=== PATIENT | male | born 1945 | race Caucasian/White ===

== ENCOUNTER 2023-02-08 15:04 | Inpatient (IN) | payer MEDICARE, OTHER, SELFPAY ==
[2023-02-08 15:56] VITALS: BP 153/67; PULSE 90; RESP 18; TEMP 37.2; O2SAT 93
[2023-02-08 16:56] LABS: Bedside Glucose 118 mg/dL (74-106)
--- NOTE | 2023-02-08 17:39 | EX.PCM.HP.RE ---
HPI - General General Date of Admission: 02/08/23 Date of Service: 02/08/23 Chief Complaint: Here for 3 hours daily rehabilitation. HPI Narrative JUAN R ROLAND, is a 77 Male who presents with following. 02/03/2023 77 year old from [place], [place], presented with acute onset right hemibody weakness. Left 2.5cm small thalamic intracranial hemorrhage, transfer to [facility]. Patient has slurred speech. Bloodwork showed hypokalemia, hyperglycemia, mild leukocytosis. Elevated Troponin. Blood pressure over 200 systolic, started on Cardene drip. He smokes 2 marijuana joints per day. NIHSS 4. No DVT prophylaxis secondary to brain bleed. Control blood sugar. Control systolic blood pressure to < 160, Home Lisinopril, Norvasc held. Treated with Cardene drip, PRN Hydralazine/Labetalol. Beside swallow evaluation. PT/OT/ST. 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 Neurosurgery recommended no neurosurgical intervention. 02/04/2023 CTA head/neck negative for vascular malformation, CT head stable. Weaning cardene drip. Sitter, Seroquel for agitated delirium. 02/05/2023 Weaning Precedex, optimize Seroquel, start subcutaneous heparin for DVT prophylaxis. EEG. 02/06/2023 Agitation resolved, hemodynamically stable, restart Lisinopril. Stop Precedex, titrate Seroquel. Left carotid artery occluded. EEG negative for seizure, epileptiform activity. Out of restraints, slept better. Blood glucose well controlled. 02/08/2023 Admit to [facility] for 3 hours daily rehabilitation, strengthening, prior to discharge home with . COUNT INCLUDES THE [facility] Medical History (Updated 02/08/23 @ 17:[address] Erik Nicholson MD) B12 deficiency BPH (benign prostatic hyperplasia) Debility Diabetes Former smoker High cholesterol Hyperlipidemia Hypertension Hypertension Hypertensive emergency Intracranial hemorrhage Right hemiparesis Stroke/cerebrovascular accident Tetrahydrocannabinol (THC) dependence Tubular adenoma of colon Home Medications atorvastatin 20 mg tablet 20 mg PO QHS cholesterol 02/08/23 [History Last Taken Unknown] fluticasone propionate 50 mcg/actuation nasal spray,suspension 2 spray intranasal DAILY allergies 02/08/23 [History Last Taken Unknown] folic acid 1 mg tablet 1 mg PO DAILY vitamin 02/08/23 [History Last Taken Unknown] glipizide 5 mg tablet, extended release 24 hr (Glucotrol XL) 5 mg PO BID dm 02/08/23 [History Last Taken Unknown] ipratropium 0.5 mg-albuterol 3 mg (2.5 mg base)/3 mL nebulization soln 3 ml inhalation Q4H PRN Shortness Of Breath Or Wheezing 02/08/23 [History Last Taken Unknown] lisinopril 5 mg tablet 15 mg PO DAILY bp 02/08/23 [History Last Taken Unknown] mometasone 220 mcg/actuation(14 doses) breath activated powder inhaler 1 inh inhalation DAILY breathing 02/08/23 [History Last Taken Unknown] omeprazole 20 mg capsule,delayed release 20 mg PO DAILY gerd 02/08/23 [History Last Taken Unknown] polyethylene glycol 3350 17 gram oral powder packet (Miralax) 17 g PO DAILY constipation 02/08/23 [History Last Taken Unknown] quetiapine 25 mg tablet (Seroquel) 25 mg PO BID mood 02/08/23 [History Last Taken Unknown] senna-docusate sodium tablet 2 tab PO BID constipation 02/08/23 [History Last Taken Unknown] thiamine HCl (vitamin B1) 100 mg tablet 100 mg PO DAILY vitamin 02/08/23 [History Last Taken Unknown] Allergy/AdvReac Type Severity Reaction Status Date / Time azithromycin [From AzaSite] Allergy Itching Verified 02/08/23 15:58 adhesive tape [tape] AdvReac PT UNSURE Verified 02/08/23 15:58 OF REACTION dexmedetomidine AdvReac Other Verified 02/08/23 15:58 [From Precedex] Family History (Updated 02/08/23 @ 17:[address] Erik Nicholson MD) Other Hypertension Surgical History (Updated 02/08/23 @ 17:[address] Erik Nicholson MD) History of nasal polypectomy History of right knee surgery History of surgery on lower extremity Social History (Updated 02/08/23 @ 17:[address] Erik Nicholson MD) household members: spouse Smoking Status: Former smoker alcohol intake: never substance use type: marijuana and other details: He smokes 2 marijuana joints per day. additional social history: [place] . ROS Constitutional Constitutional: Denies chills, fever(s) or weight gain ENT HEENT: Denies headache(s), nasal congestion or nasal discharge Cardiovascular Cardiovascular: Denies chest pain or palpitations Respiratory/Chest Respiratory/Chest: Denies cough, excessive phlegm production or shortness of breath with exertion Gastrointestinal Gastrointestinal: Denies abdominal pain, nausea or vomiting Genitourinary Genitourinary: Denies dysuria Musculoskeletal Musculoskeletal: Denies joint pain or joint swelling Integumentary Integumentary: Denies rash or wounds Neurologic Neurologic: Denies focal weakness, numbness or tingling Psychiatric Psychiatric: Denies anxiety, auditory hallucinations, depression, homicidal ideation or suicidal ideation Vital Signs Vital Signs Vital Signs: 02/08/23 15:56 Temperature 98.9 F Temperature Source Oral Pulse Rate 90 Respiratory Rate 18 Blood Pressure 153/67 H Blood Pressure Mean 95 Blood Pressure Source Monitor Blood Pressure Position Semi-Fowlers Blood Pressure Location Right Arm Pulse Ox 93 Oxygen Delivery Method Room Air Indicators for Scoring Admitted with or Primary Diagnosis of CVA/Stroke: Yes Hx of CVA/Stroke: No Modified Dennison Score MRS Score at time of Evaluation: 3-Moderate disability NIHSS NIHSS 1b. LOC Questions: Answers BOTH questions correctly. 1c. LOC Commands: Performs both tasks correctly. 2. Best Gaze: Normal 3. Visual: No visual loss 4. Facial Palsy: Normal symmetrical movements 5a. Left Arm: No drift; arm holds 90 (or 45) degrees for full 10 seconds 5b. Right Arm: No drift; arm holds 90 (or 45) degrees for full 10 seconds 6a. Left Leg: No drift; leg holds 30-degree position for full 5 seconds 6b. Right Leg: Drift; leg falls by the end of 5-seconds, but does not hit bed 7. Limb Ataxia: Absent 8. Sensory: [id number] sensory loss; 9. Best Language: No aphasia; normal 10. Dysarthria: Normal 11. Extinction and Inattention: No abnormality Total: 2 Physical Exam Const alert General Appearance: cooperative HEENT normocephalic Eyes PERRL and EOMs intact bilaterally Neck supple, no JVD and no carotid bruits Resp normal respiratory effort, normal air movement and clear to auscultation bilaterally Cardio regular rate and regular rhythm GI normal to inspection, nondistended, normoactive bowel sounds, non-tender and non-distended Extremity normal capillary refill General Extremity: Negative for edema Skin no rashes or lesions noted General Skin Exam: no breakdown Neuro Neuro Narrative: Right upper extremity mild hemiparesis, right lower extremity moderate hemiparesis. Psych affect normal Appearance: appropriate Results Lab / Micro Data Labs: Laboratory Results - last 24 hr 02/08/23 16:29: POC Glucose 118 H Assessment & Plan Assessment/Plan (1) Debility: (2) Intracranial hemorrhage: (3) Right hemiparesis: (4) Hypertensive emergency: (5) Diabetes mellitus: (6) Hypertension: (7) Hyperlipidemia: (8) BPH (benign prostatic hyperplasia): (9) Tubular adenoma of colon: (10) B12 deficiency: (11) Tetrahydrocannabinol (THC) dependence: PLAN: Plan 77 year old male with below past medical history hospitalized for left thalamic nontraumatic intracranial hemorrhage secondary to hypertensive emergency, right hemiparesis, complicated by agitated delirium, admitted to [facility] for 3 hours daily rehabilitation, strengthening, prior to discharge home with . Debility - PT/OT/ST. Pain - Tylenol 1000mg q6h prn pain (1-10). Bowel - Miralax 17gm daily, senna/colace 2 tablets bid, Dulcolax 10mg pr x 1 prn, MOM 30ml po x 1 prn. DVT prophylaxis - Lovenox 40mg sc daily. Hyperlipidemia - Atorvastatin 20mg qhs. COPD - Budesonide 05mg inhaled q12h, Duoneb 3ml q4h prn. Allergic rhinitis - Flonase 2 sprays nasal daily prn. ?Alcohol dependence - Folic acid 1mg daily, Thiamine 100mg daily. Diabetes Mellitus II - Glipizide 5mg bid. GERD - Pantoprazole 20mg daily. Agitation - Seroquel 25mg bid, wean as appropriate.
[2023-02-08 19:22] VITALS: BP 150/70; PULSE 94; RESP 14; TEMP 37; O2SAT 95
[2023-02-08 20:00] VITALS: O2SAT 95
--- NOTE | 2023-02-08 20:10 | CPS ---
[2000] Pt. refused his Pulmicort aerosol tx. at this time. Pt. also refused to perform I.S. and PEP at this time. Pt. states that he is very tired and has had a busy day. I told the pt. to inform his nurse if he's having any difficulties with his breathing at night.
[2023-02-08] MEDS: QUEtiapine 25 MG Tablet PO (20:37)
[2023-02-08] MEDS: Atorvastatin Calcium 20 MG Tablet PO (20:37)
[2023-02-08] MEDS: Fluticasone 0.05% 1 SPRAY NASAL.SRY 2 SPRAY NASAL (21:45)
[2023-02-08 22:05] LABS: Bedside Glucose 124 mg/dL (74-106)
--- NOTE | 2023-02-08 22:07 | NURSING ---
and patient aware of team and rehab routine. Patient pleasant, x2 assist stand pivot to bsc with staff. Continent. Needs some cues and reminders and gets things mixed up with easy reminders.
[2023-02-09 03:33] LABS: Hemoglobin 13.8 g/dL (13.0-16.5); Mean Corp Hgb Conc 33.7 g/dL (32-36); Mean Corpuscular Hgb 32.9 pg (27.0-32.0); Mean Corpuscular Volume 97.9 fL (80-94); Mean Platelet Vol. 10.8 fl (6.2-12.0); Platelet Count 210 K/mm3 (150-450); RBC Distribution Width CV 12.3 % (11.6-14.6); RBC Distribution Width SD 44.4 fl (35.1-43.9); Red Blood Count 4.19 M/mm3 (4.6-6.2); White Blood Count 7.4 K/mm3 (4.4-11.0)
[2023-02-09 03:51] LABS: ALB/GLOB Ratio 0.9 RATIO (0.9-2.4); AST(SGOT) 38 U/L (15-37); Alanine Aminotransfer ALT/SGPT 49 U/L (16-61); Albumin, Serum 3.1 g/dL (3.2-5.0); Alkaline Phosphatase 56 U/L (45-117); Anion Gap 8 (5-15); BUN 30 mg/dL (7-18); BUN/Creat Ratio 28.8 RATIO (10-20); Calcium,Total 8.8 mg/dL (8.5-10.1); Chloride 106 mmol/L (98-107); Creatinine, Serum 1.04 mg/dL (0.70-1.30); EST Glomerular Filtration Rate 74 mL/min (>60); Est Glom Filt Rate - Afr Amer 89 mL/min (>60); Globulin 3.5 g/dL (2.2-4.2); Glucose 130 mg/dL (74-106); Magnesium 2.1 mg/dL (1.6-2.6); Phosphorus 3.3 mg/dL (2.5-4.9); Potassium 4.1 mmol/L (3.5-5.1); Protein, Total 6.6 g/dL (6.4-8.2); Sodium Level 141 mmol/L (136-145)
[2023-02-09] MEDS: 0.9% Saline Lock 10 ML Syringe IV (06:30)
[2023-02-09] MEDS: Enoxaparin 40 MG/0.4 ML Syringe SC (06:36)
[2023-02-09 06:51] LABS: Bedside Glucose 138 mg/dL (74-106)
[2023-02-09 08:30] VITALS: BP 154/75; PULSE 70; RESP 16; TEMP 36.8; O2SAT 99
[2023-02-09] MEDS: glipiZIDE XL 5 MG Tablet PO ×2 (09:23→17:04)
[2023-02-09] MEDS: QUEtiapine 25 MG Tablet PO ×2 (09:23→20:00)
[2023-02-09] MEDS: Pantoprazole Sodium 20 MG Tablet PO (09:23)
[2023-02-09] MEDS: Thiamine Hydrochloride 100 MG Tablet PO (09:23)
[2023-02-09] MEDS: Folic Acid 1 MG Tablet PO (09:24)
[2023-02-09] MEDS: Lisinopril 5 MG Tablet 15 MG PO (09:24)
[2023-02-09 11:41] LABS: Bedside Glucose 125 mg/dL (74-106)
[2023-02-09 16:36] LABS: Bedside Glucose 84 mg/dL (74-106)
--- NOTE | 2023-02-09 18:51 | PCM.RU.PYE ---
Admission Information Primary Diagnosis:: Left thalamic ICH Status Changes from Prescreening?: No changes Identified Actual Problem List:: Cognitve Impr/Memory Loss, Alteration in Sleep, Mobility Impaired, Ineffective Communication, Know.Dfct/Disease Process and Know.Dfct of Medicaitons Potential Problem List:: DVT, Bleeding, Infection, UTI, Aspiration, Falls, Skin Integrity and Depression Risk of Complications DVT: LMWH and HUMZA Hose Bleeding: Monitor Lab Values, Nursing to Teach Precautions for anti-coagulation therapy., Wound, if applicable, to be assessed every shift. and Stroke patients assessed for lethargy or change in status. Infection: Clinical Staff to Monitor for S/S of infection: and S/S of infection include fever, redness, warmth, etc. Urinary Tract Infection: Monitor for frequency, burning, discomfort, or incontinence. and Nursing will obtain urine sample for urinalysis and C&S when ordered. Aspiration: Clinical staff will monitor for coughing, drooling, congestion., Speech will evaluate swallowing and dsyphasia. and Nursing will monitor patient swallowing during meals. Falls: Patient will be evaluated for Fall Precautions and Patient will be placed on Fall Precautions as indicated per protocol. Skin Breakdown: Nursing will assess skin daily using assessment tool. and Nursing will place on Skin Breakdown Precautions as indicated. Pain: Clinical staff will assess patient's pain level per protocol., Medications will be given, if needed, and the pain level reassessed. and Other methods: Massage, distraction, decrease stimulus, etc. used PRN. Plan of Care Patient requires physician specializing in physical medicine and rehab oversight to provide close medical supervision of rehab issues including: Pain Management, Sleep Problems, Bowel and Bladder, Medical and co-morbidity Management, DVT prophylaxis, Rehabilitation Leadership and Coordination of treatment team Patient needs Physical Therapy: For a minimum of 1 hour and At least 5 out of 7 days Patient needs Physical Therapy to improve:: Mobility, Strengthening, Transfers, Stretching, ROM, Endurance, Stairs, Gait and Balance Patient needs Occupational Therapy: For a minimum of 1 hour and At least 5 out of 7 days Patient needs Occupational Therapy to improve ADL's incl.: Eating, Grooming, Bathing, Dressing, Toileting, Toilet transfers, Higher functioning activities, Household tasks, Adaptive Equipment, Splinting and Other activities as determined Patient requires speech therapy: For a minimum of 1 hour and At least 5 out of 7 days Patient requires speech therapy for: Swallowing, Cognition, Language Skills and Compensatory Strategies Patient requires 24/7 Rehabilitation Nursing for: Pain Issues, Identifying and preventing risk factors, Monitoring and reporting current medical conditions, Assisting with ambulation, transfer, and all ADL's, Teaching patients about disease process and medications, Family teaching, Providing safe environment, Bowel and Bladder Issues, Skin integrity and Medication Management Patient needs Importer Or Exporter/ Case Management for: Discharge Planning, Arranging Home Equipment or Services and Family Interventions Patient needs Dietary and Nutrition Services for: Adequate Nutrition, Nutritional Supplements and Nutritional Education Goals Patient will remain: free from falls and or injury at time of discharge. Patient will perform bed mobility at: MOD I level of assist. Patient will complete transfers from bed to chair at: MOD I level of assist. Patient will ambulate: with MOD I assist (150 feet) Patient will complete upper body dressing at: Standby Assist. Patient will complete lower body dressing at: - (CGA without LOB) Patient will complete toileting at: - (CGA) Patient will perform bathing at: Standby Assist. Patient will complete grooming at: Standby Assist. Patient will complete home management skills at: MOD I level of assist. Patient will achieve: at MOD I assist Patient will have pain level of: of 3 or less Patient's skin will: remain intact and free from infection. Patient will receive: adequate nutrition. Discharge Planning Pt Prognosis for Sig. Practical Improv. w/in Reasonable Time: Good Estimated Length of stay (days): 28 Anticipated D/C Destination: Home with Outpt Therapy Was Preadmission Assessment Accurate?: Yes
[2023-02-09 18:59] VITALS: BP 121/64; PULSE 62; RESP 16; TEMP 36.6; O2SAT 95
[2023-02-09] MEDS: Atorvastatin Calcium 20 MG Tablet PO (20:00)
[2023-02-09] MEDS: Fluticasone 0.05% 1 SPRAY NASAL.SRY 2 SPRAY NASAL (20:00)
[2023-02-09 21:21] LABS: Bedside Glucose 84 mg/dL (74-106)
[2023-02-10] MEDS: Enoxaparin 40 MG/0.4 ML Syringe SC (05:46)
[2023-02-10] MEDS: 0.9% Saline Lock 10 ML Syringe IV (05:57)
[2023-02-10 06:36] LABS: Bedside Glucose 119 mg/dL (74-106)
[2023-02-10 07:00] VITALS: O2SAT 98
[2023-02-10 07:32] VITALS: BP 144/75; PULSE 77; RESP 17; TEMP 36.9; O2SAT 96
[2023-02-10] MEDS: glipiZIDE XL 5 MG Tablet PO (08:20)
[2023-02-10] MEDS: Pantoprazole Sodium 20 MG Tablet PO (08:20)
[2023-02-10] MEDS: Lisinopril 5 MG Tablet 15 MG PO (08:20)
[2023-02-10] MEDS: Thiamine Hydrochloride 100 MG Tablet PO (08:20)
[2023-02-10] MEDS: Folic Acid 1 MG Tablet PO (08:20)
[2023-02-10] MEDS: QUEtiapine 25 MG Tablet PO ×2 (08:20→21:01)
[2023-02-10] MEDS: Senna/Docusate Sodium 1 Tablet 2 TABLET PO (08:21)
--- NOTE | 2023-02-10 12:02 | PCM.PROGNOTE ---
Subjective Subjective Afebrile VSS -systolic blood pressure is mildly elevated in the range of 1 44-1 54. Diastolics are within normal limits. Heart rate is within normal limits. Maintaining appropriate oxygen saturation on RA Oral intake is good. He is eating 75 to 100% of his meals. The blood sugar record was reviewed. Discussed with nursing - no problems that need addressed Reviewed the PT/OT/ST notes Medication list reviewed. Currently on Glucotrol XL 5 mg twice daily. He is taking Seroquel 25 mg twice daily. He is on thiamine and folate acid. All lab drawn yesterday AM was personally reviewed. Hemoglobin is within normal limits but the MCV is increased at 97.9. White blood cell count and platelets are normal. BUN was elevated at 30 with a creatinine of 1.04. Calcium, magnesium and phosphorus are all within normal limits. LFTs were unremarkable. 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 He presented to [place] emergency room on 02/03/[address] with right hemip[address]is. CT showed a left thalamic intracerebral hemorrhage thought to be secondary to uncontrolled hypertension. No neurosurgical intervention was necessary. CTA of the head and neck was negative for vascular malformation or aneurysm. The left internal carotid artery was occluded. He was started on Seroquel on 02/04/2023 due to agitated delirium. He was taken out of restraints on 02/06/2023. He had an EEG that was negative for seizure. Past medical history is significant for BPH, B12 deficiency, diabetes mellitus type 2, tobacco dependence in remission, hyperlipidemia, hypertension, daily THC dependence, COPD and colon polyps. ? hx of ETOH abuse - he is on thiamine and Folic acid? Raymond denies any alcohol use. He used to drink heavily but then when he started using marijuana twice a day he was able to quit drinking. Was not having difficulty sleeping prior to the stroke. No hx of BPD or schizophrenia. Raymond denies lightheadedness, vertigo, CP, SOB at rest, SOB with exertion, cough, nausea, vomiting, abd pain, diarrhea, constipation, dysuria, calf pain and ankle swelling. Tells me that he was taking his medications as instructed at home. Denies any use of decongestants recently. No illicit drug use. Admits to having a lot on his mind since having the stroke. Objective Data Objective Data Vital Signs: Vital Signs Temp Pulse Resp BP Pulse Ox O2 Del Method 98.4 F 77 17 144/75 H 96 Room Air 02/10/23 07:32 02/10/23 07:32 02/10/23 07:32 02/10/23 07:32 02/10/23 07:32 02/10/23 07:32 Oxygen Delivery Method Room Air Weight: 155 lb Intake & Output: Intake and Output for Last 24 Hours 02/08/23 02/09/23 02/10/23 23:59 23:59 23:59 Intake Total 780 / 840 1510 / 1630 360 / 360 Output Total 200 / 400 1425 / 1625 325 / 325 Balance 580 / 440 85 / 5 35 / 35 Lab / Micro Data Result Diagrams: 02/09/23 02:45 02/09/23 02:45 Labs: Laboratory Results - last 24 hr 02/09/23 16:12: POC Glucose 84 02/09/23 20:53: POC Glucose 84 02/10/23 05:53: POC Glucose 119 H Physical Exam Const alert, oriented x3 and no apparent distress General Appearance: cooperative HEENT normocephalic Resp clear to auscultation bilaterally Cardio regular rate, regular rhythm, no rub and no gallops GI normal to inspection, nondistended, normoactive bowel sounds, soft to palpation and non-tender GI Narrative: No guarding with palpation Extremity no calf tenderness General Extremity: Negative for edema Skin General Skin Exam: no breakdown Rashes: no rashes Psych cooperative Appearance: appropriate Assessment & Plan Assessment/Plan (1) Debility: (2) Intracranial hemorrhage: (3) Right hemiparesis: (4) Diabetes mellitus: (5) Hypertension: (6) Hyperlipidemia: (7) BPH (benign prostatic hyperplasia): (8) Tubular adenoma of colon: (9) B12 deficiency: (10) Tetrahydrocannabinol (THC) dependence: PLAN: Plan 1. Continue therapy 2. Check B12 and a hemoglobin A1c. 3. Query the patient about ETOH use. Charges/Coding Visit Charges Inpatient E&M: 34954 Subs Hosp L2
[2023-02-10 12:20] LABS: Bedside Glucose 89 mg/dL (74-106)
[2023-02-10 13:18] LABS: Hemoglobin A1c 6.5 % (3.8-5.6)
[2023-02-10 13:21] LABS: Vitamin B12 365 pg/mL (211-911)
[2023-02-10 17:39] LABS: Bedside Glucose 113 mg/dL (74-106)
[2023-02-10 19:46] VITALS: BP 130/60; PULSE 76; RESP 16; TEMP 36.1; O2SAT 98
[2023-02-10] MEDS: Atorvastatin Calcium 20 MG Tablet PO (21:01)
[2023-02-10] MEDS: Dronabinol 2.5 MG Capsule PO (21:01)
[2023-02-10] MEDS: Fluticasone 0.05% 1 SPRAY NASAL.SRY 2 SPRAY NASAL (21:01)
[2023-02-10 21:55] LABS: Bedside Glucose 147 mg/dL (74-106)
[2023-02-11] MEDS: Enoxaparin 40 MG/0.4 ML Syringe SC (05:23)
[2023-02-11 06:00] VITALS: BMI 24.7
[2023-02-11 06:11] LABS: Bedside Glucose 117 mg/dL (74-106)
[2023-02-11 07:14] VITALS: BP 136/65; PULSE 77; RESP 16; TEMP 36.4; O2SAT 98
[2023-02-11 07:47] VITALS: O2SAT 98
[2023-02-11] MEDS: QUEtiapine 25 MG Tablet 12.5 MG PO (08:41)
[2023-02-11] MEDS: Lisinopril 5 MG Tablet 15 MG PO (08:41)
[2023-02-11] MEDS: Folic Acid 1 MG Tablet PO (08:42)
[2023-02-11] MEDS: glipiZIDE XL 5 MG Tablet PO (08:42)
[2023-02-11] MEDS: Pantoprazole Sodium 20 MG Tablet PO (08:42)
[2023-02-11] MEDS: Thiamine Hydrochloride 100 MG Tablet PO (08:42)
[2023-02-11 11:50] LABS: Bedside Glucose 115 mg/dL (74-106)
--- NOTE | 2023-02-11 13:47 | PCM.PROGNOTE ---
Subjective Subjective Afebrile VSS-blood pressure this a.m. is 136/65. Systolic is more often than not above goal but the diastolic is always within normal limits. Maintaining appropriate oxygen saturation on RA Oral intake is good Discussed with nursing - no problems that need addressed Reviewed the PT/OT/ST notes Medication list reviewed. Hemoglobin A1c was 6.5 and the B12 was within normal limits at 365. Raymond denies lightheadedness, ROMERO, vertigo, CP, SOB at rest, SOB with exertion, cough, nausea, vomiting, abd pain, diarrhea, constipation, dysuria, calf pain and ankle swelling. His only complaints today are urinary urgency and not sleeping well. Was a Flomax a few years ago and said it did not help. He has nocturia and dribbling. Denies burning with urination at this time. Objective Data Objective Data Vital Signs: Vital Signs Temp Pulse Resp BP Pulse Ox O2 Del Method 97.6 F L 77 16 136/65 H 98 Room Air 02/11/23 07:14 02/11/23 07:14 02/11/23 07:14 02/11/23 07:14 02/11/23 07:47 02/11/23 07:47 Oxygen Delivery Method Room Air Weight: 155 lb Intake & Output: Intake and Output for Last 24 Hours 02/09/23 02/10/23 02/11/23 23:59 23:59 23:59 Intake Total 1510 / 1630 1680 / 1680 360 / 360 Output Total 1425 / 1625 775 / 775 625 / 625 Balance 85 / 5 905 / 905 -265 / -265 Lab / Micro Data Result Diagrams: 02/09/23 02:45 02/09/23 02:45 Labs: Laboratory Results - last 24 hr 02/10/23 16:48: POC Glucose 113 H 02/10/23 21:25: POC Glucose 147 H 02/11/23 05:34: POC Glucose 117 H 02/11/23 11:24: POC Glucose 115 H Physical Exam Const alert, oriented x3 and no apparent distress General Appearance: cooperative HEENT normocephalic Resp clear to auscultation bilaterally Cardio regular rate, regular rhythm, no rub and no gallops GI normal to inspection, nondistended, normoactive bowel sounds, soft to palpation and non-tender GI Narrative: No guarding with palpation Extremity no calf tenderness General Extremity: Negative for edema Skin General Skin Exam: no breakdown Rashes: no rashes Psych cooperative Appearance: appropriate Assessment & Plan Assessment/Plan (1) Debility: (2) Intracranial hemorrhage: (3) Right hemiparesis: (4) Diabetes mellitus: (5) Hypertension: (6) Hyperlipidemia: (7) BPH (benign prostatic hyperplasia): (8) Tubular adenoma of colon: (9) B12 deficiency: (10) Tetrahydrocannabinol (THC) dependence: PLAN: Plan 1. Continue therapy 2. Raymond tells me that he used to drink heavily but ever since he started smoking 2 joints a day he has given up alcohol. We will discontinue the thiamine and folic acid. 3. Check a UA to rule out urinary tract infection 4. Blood pressure is not yet at goal so will add Cardura 1 mg p.o. nightly which will also help get the blood pressure down in addition to improving urination. 5. Discontinue Seroquel in the a.m. but continue 25 mg at at bedtime. 6. Ambien 5 mg p.o. nightly for insomnia.....Does not have this problem at home and smoking 2 joints a day. Charges/Coding Visit Charges Inpatient E&M: 77442 Subs Hosp L2
[2023-02-11 14:22] VITALS: BMI 24.7
[2023-02-11 17:15] LABS: Bedside Glucose 101 mg/dL (74-106)
[2023-02-11 18:33] LABS: Mucous, Urine 0 SEEN /hpf (<or=2+)
[2023-02-11 18:54] LABS: Color, Urine Yellow (Yellow); Glucose, Dipstick Normal (Normal); Ketone-Dipstick Negative (Negative); Leukocyte Esterase-Dipstick 500 /ul (Negative); Nitrite-Dipstick Negative (Negative); Occult Blood-Urine 25 /ul (Negative); Protein-Dipstick 15 mg/dl (Negative); Specific Gravity, Urine 1.025 (1.002-1.030); Urine Bilirubin Dipstick Negative (Negative); Urine Clarity Sl. Cloudy (Clear); Urine Urobilinogen Normal (Normal)
[2023-02-11 19:20] LABS: Amorphous Sediment 1+ URATE; Bacteria RARE /hpf (None Seen); Red Blood Cells-Urine 0-5 SEEN /hpf (0-5); Squamous Epithelial Cells - UA 0-5 SEEN /hpf (0-5); White Blood Cells 50-100 SEEN /hpf (0-5)
[2023-02-11 19:34] VITALS: BP 141/73; PULSE 79; RESP 14; TEMP 36.8; O2SAT 97
[2023-02-11] MEDS: Doxazosin 1 MG Tablet PO (20:56)
[2023-02-11] MEDS: Atorvastatin Calcium 20 MG Tablet PO (20:57)
[2023-02-11] MEDS: Zolpidem Tartrate 5 MG Tablet PO (20:59)
[2023-02-11] MEDS: QUEtiapine 25 MG Tablet PO (21:13)
[2023-02-11 21:21] VITALS: PULSE 79; RESP 14; O2SAT 97
[2023-02-11 22:06] LABS: Bedside Glucose 153 mg/dL (74-106)
[2023-02-11] MEDS: Fluticasone 0.05% 1 SPRAY NASAL.SRY 2 SPRAY NASAL (22:19)
--- NOTE | 2023-02-12 01:23 | NURSING ---
Pt requested medication at 2055 this HS.
[2023-02-12 02:11] VITALS: BMI 24.7
--- NOTE | 2023-02-12 02:55 | NURSING ---
At this time Pt used call light to call this nurse into room, found pt sitting in W/C in dark. Pt states he is all wet. Washed pt, re-dressed, and educated on needing assistance before any transfers and safety concerns. Pt stated he transferred to bathroom and to W/C . PA had been moved to bottom of bed. PA replaced under patient and patient assisted back to bed with call light in reach. No c/o pain or discomfort.
[2023-02-12] MEDS: Enoxaparin 40 MG/0.4 ML Syringe SC (05:07)
[2023-02-12 07:00] LABS: Bedside Glucose 134 mg/dL (74-106)
[2023-02-12 07:34] VITALS: BP 162/75; PULSE 82; RESP 16; TEMP 36.4; O2SAT 96
[2023-02-12] MEDS: glipiZIDE XL 5 MG Tablet PO (09:01)
[2023-02-12] MEDS: Lisinopril 5 MG Tablet 15 MG PO (09:02)
[2023-02-12] MEDS: Pantoprazole Sodium 20 MG Tablet PO (09:02)
--- NOTE | 2023-02-12 11:34 | CASEMGMT ---
Social Work Completed advanced directives with pt. Original and copies provided to pt. Copies placed on chart. Johanny Hood [employer]IVETER HELPER
[2023-02-12 11:40] LABS: Bedside Glucose 153 mg/dL (74-106)
[2023-02-12 15:17] VITALS: BMI 24.7
[2023-02-12 17:05] LABS: Bedside Glucose 83 mg/dL (74-106)
[2023-02-12 20:40] VITALS: BP 138/63; PULSE 70; RESP 16; TEMP 36.7; O2SAT 100; BMI 24.7
[2023-02-12] MEDS: QUEtiapine 25 MG Tablet PO (20:58)
[2023-02-12] MEDS: Doxazosin 1 MG Tablet PO (20:58)
[2023-02-12] MEDS: Atorvastatin Calcium 20 MG Tablet PO (20:58)
[2023-02-12] MEDS: Zolpidem Tartrate 5 MG Tablet PO (20:58)
[2023-02-12] MEDS: Fluticasone 0.05% 1 SPRAY NASAL.SRY 2 SPRAY NASAL (20:59)
[2023-02-12 23:15] LABS: Bedside Glucose 146 mg/dL (74-106)
[2023-02-13] MEDS: Enoxaparin 40 MG/0.4 ML Syringe SC (06:18)
[2023-02-13 06:24] VITALS: O2SAT 96
[2023-02-13 07:15] LABS: Bedside Glucose 123 mg/dL (74-106)
[2023-02-13 08:00] VITALS: O2SAT 97
[2023-02-13 08:27] VITALS: BP 116/65; PULSE 89; RESP 18; TEMP 36.7; O2SAT 93
[2023-02-13] MEDS: Pantoprazole Sodium 20 MG Tablet PO (10:24)
[2023-02-13] MEDS: glipiZIDE XL 5 MG Tablet PO (10:24)
[2023-02-13] MEDS: Lisinopril 5 MG Tablet 15 MG PO (10:25)
[2023-02-13 11:30] LABS: Bedside Glucose 116 mg/dL (74-106)
[2023-02-13 13:23] VITALS: BMI 24.7
--- NOTE | 2023-02-13 13:25 | CASEMGMT ---
Social Work IDT met with patient and for Team meeting. Discussed patient's progress in PT/OT/ST/SN. Educated to Medicare approval of 13 days with DC 02/21. IDT recommending home with outpatient PT/OT/ST. Pt lives in [place]. SW to contact [facility] about disciplines, otherwise, requesting a [facility] facility. Therapy Recommending transfer tub bench and bed rail for home, which knows to purchase. OT offered shared care with for to feel more comfortable with taking pt home. agreeable and scheduled for 02/19. SW to continue to follow to finalize DC plans. Plan: DC 02/21 ZULY GarrettW
--- NOTE | 2023-02-13 15:58 | PCM.PROGNOTE ---
Subjective Subjective Raymond was seen on team rounds today. His was present in the room for rounds. Afebrile VSS-blood pressure is doing better with the addition of Cardura 1 mg at at bedtime. The blood pressure this morning was 116/65. Heart rate is within normal limits. He denies lightheadedness. Maintaining appropriate oxygen saturation on RA Oral intake is good Blood sugar record was reviewed and the blood sugars are under excellent control with no hypoglycemia Discussed with nursing - no problems that need addressed Reviewed the PT/OT/ST notes - will come in for shared therapy next week......she feels he may not be ready for DC home....this way she can see how is doing and then they can determine if he will be safe with her helping him at home. Medication list reviewed. Raymond tells me he is sleeping better. He tells me that he was incontinent of urine last night but, this is not documented. He has missed the urinal at times. Denies cephalgia, lightheadedness, coughing, shortness of breath, palpitations, chest pain, nausea/vomiting/abdominal pain, dysuria and calf pain. The UA sent on 02/11/2023 showed 50-100 WBCs and was nitrite negative. There were +1 urate crystals. Specific gravity was 1.025 and there was protein in the urine. Urine culture is growing less than 1000 colonies of Staph aureus so ? whether he actually has a UTI? Postvoid residuals x3 are all less than 200. Objective Data Objective Data Vital Signs: Vital Signs Temp Pulse Resp BP Pulse Ox O2 Del Method 98.0 F 89 18 116/65 93 Room Air 02/13/23 08:27 02/13/23 08:27 02/13/23 08:27 02/13/23 08:27 02/13/23 08:27 02/13/23 08:27 Oxygen Delivery Method Room Air Weight: 144 lb 9.972 oz Body Mass Index (BMI) 24.7 Intake & Output: Intake and Output for Last 24 Hours 02/11/23 02/12/23 02/13/23 23:59 23:59 23:59 Intake Total 1320 / 1320 90 / 90 915 / 915 Output Total 1225 / 1225 900 / 900 275 / 275 Balance 95 / 95 -810 / -810 640 / 640 Lab / Micro Data Result Diagrams: 02/09/23 02:45 02/09/23 02:45 Labs: Laboratory Results - last 24 hr 02/12/23 16:44: POC Glucose 83 02/12/23 20:42: POC Glucose 146 H 02/13/23 06:42: POC Glucose 123 H 02/13/23 11:05: POC Glucose 116 H Micro: Microbiology 02/11/23 18:25 Urine, Clean Catch Urine Culture - Preliminary Staphylococcus aureus Physical Exam Const alert and no apparent distress General Appearance: cooperative HEENT moist oral mucous membranes Resp normal respiratory effort, no use of accessory muscles and clear to auscultation bilaterally Effort and Inspection: Negative for tachypneic or labored Cardio regular rate, regular rhythm and no gallops GI normal to inspection, nondistended, normoactive bowel sounds, non-tender and non-distended GI Narrative: no guarding with palpation Extremity Negative for no calf tenderness General Extremity: Negative for edema Skin General Skin Exam: no breakdown Rashes: no rashes Psych affect normal Assessment & Plan Assessment/Plan (1) Debility: (2) Intracranial hemorrhage: (3) Right hemiparesis: (4) Diabetes mellitus: (5) Hypertension: (6) Hyperlipidemia: (7) BPH (benign prostatic hyperplasia): (8) Tubular adenoma of colon: (9) B12 deficiency: (10) Tetrahydrocannabinol (THC) dependence: PLAN: Plan 1. Continue therapy 2. Raymond's will come in for shared training/therapy next week. Discharge date is 03-14 and it has yet to be determined if he will be going home or to an SNF. 3. Since he has less than 1000 colonies of Staph aureus in his urine will not start antibiotics at this time. Await the sensitivities. We will consider treating for 3 days once we see the sensitivities. He has had urine incontinence and urine urgency with unremarkable postvoid residuals. We will continue the Cardura because it is helping his blood pressure and will treat BPH. Charges/Coding Visit Charges Inpatient E&M: 41418 Subs Hosp L2
[2023-02-13 15:59] VITALS: BP 138/67; BP 154/74; BP 162/74; PULSE 78; PULSE 88; PULSE 91
[2023-02-13 17:09] LABS: Bedside Glucose 91 mg/dL (74-106)
[2023-02-13 22:00] VITALS: BP 127/57; PULSE 83; RESP 18; TEMP 36.8; O2SAT 95; BMI 24.7
[2023-02-13] MEDS: Zolpidem Tartrate 5 MG Tablet PO (22:31)
[2023-02-13] MEDS: Atorvastatin Calcium 20 MG Tablet PO (22:31)
[2023-02-13] MEDS: Doxazosin 1 MG Tablet PO (22:31)
[2023-02-13] MEDS: Fluticasone 0.05% 1 SPRAY NASAL.SRY 2 SPRAY NASAL (22:31)
[2023-02-13] MEDS: QUEtiapine 25 MG Tablet PO (22:31)
[2023-02-13 23:04] LABS: Bedside Glucose 108 mg/dL (74-106)
--- NOTE | 2023-02-14 04:30 | NURSING ---
pt found up in the room during 399 rounding, pt reports that the bed was wet and he was trying to get clothes from the closet. staff assisted pt to the br changed bed linens and cleansed pt and change t-shirt. pt assisted back to bed and was educated on using the call to ring for assistance. pt was trying to explain that he was unable to get attends off and got wrapped in it and sheet, and that he could not find his call light. pt seemed upset over the incontinence, staff tried to explain that this was part of his stroke and that his brain still needed to heal. pt was told by staff if all else fails to call out for help if he could not find his call light. bed alarm was found off and was then turned on
[2023-02-14] MEDS: Enoxaparin 40 MG/0.4 ML Syringe SC (05:49)
[2023-02-14 07:45] LABS: Bedside Glucose 120 mg/dL (74-106)
[2023-02-14 08:07] VITALS: BP 137/68; PULSE 97; RESP 18; TEMP 36.5; O2SAT 95
[2023-02-14] MEDS: glipiZIDE XL 5 MG Tablet PO (09:53)
--- NOTE | 2023-02-14 10:23 | PCM.PN.BLA ---
Progress Note Afebrile VSS Maintaining appropriate oxygen saturation on RA Oral intake is good The blood sugar record was reviewed and blood sugars are very well controlled with no hypoglycemia. Discussed with nursing -continues to have episodes of urinary incontinence. Reviewed the PT/OT/ST notes Medication list reviewed. He continues to complain of urinary urgency but denies dysuria. Postvoid residuals earlier in the admission were all less than 200. The urine culture is growing less than 1000 colonies of methicillin sensitive Staph aureus but, he had significant pyuria on the UA. Alert, no apparent distress, pleasant, oriented x3 Mucous membranes are moist Lungs are clear to auscultation Heart has a regular rate and rhythm with no ectopy, no gallop abdomen-soft, nontender, nondistended, normal bowel sounds No calf tenderness, no edema Impressions/plan 1. Postop debility 2. Cystitis-start Duricef 1 g p.o. daily 3. Hypertension-if the blood pressure is still elevated after the weekend will increase Cardura to 2 mg at at bedtime Visit Charges Inpatient E&M: 71164 [facility] Hosp L1
[2023-02-14] MEDS: Lisinopril 5 MG Tablet 15 MG PO (10:34)
[2023-02-14] MEDS: Pantoprazole Sodium 20 MG Tablet PO (10:34)
[2023-02-14 11:30] LABS: Bedside Glucose 177 mg/dL (74-106)
[2023-02-14] MEDS: Cefadroxil 500 MG CAPSULE 1000 MG PO (12:10)
[2023-02-14 15:28] VITALS: BMI 24.7
[2023-02-14 17:01] LABS: Bedside Glucose 172 mg/dL (74-106)
[2023-02-14 19:35] VITALS: BP 119/53; PULSE 92; RESP 16; TEMP 36.7; O2SAT 100
[2023-02-14] MEDS: Doxazosin 1 MG Tablet PO (21:28)
[2023-02-14] MEDS: Atorvastatin Calcium 20 MG Tablet PO (21:28)
[2023-02-14] MEDS: QUEtiapine 25 MG Tablet PO (21:29)
[2023-02-14] MEDS: Fluticasone 0.05% 1 SPRAY NASAL.SRY 2 SPRAY NASAL (21:29)
[2023-02-14 22:00] VITALS: RESP 18
[2023-02-14 23:00] VITALS: BMI 24.7
[2023-02-15] MEDS: Enoxaparin 40 MG/0.4 ML Syringe SC (05:24)
[2023-02-15 07:08] LABS: Bedside Glucose 130 mg/dL (74-106)
[2023-02-15] MEDS: Lisinopril 5 MG Tablet 15 MG PO (09:25)
[2023-02-15] MEDS: glipiZIDE XL 5 MG Tablet PO (09:25)
[2023-02-15] MEDS: Cefadroxil 500 MG CAPSULE 1000 MG PO (09:25)
[2023-02-15] MEDS: Pantoprazole Sodium 20 MG Tablet PO (09:26)
[2023-02-15 10:00] VITALS: BP 138/69; PULSE 77; RESP 18; TEMP 36.1; O2SAT 93
[2023-02-15 15:50] VITALS: BMI 24.7
[2023-02-15 16:50] LABS: Bedside Glucose 125 mg/dL (74-106)
[2023-02-15 21:30] VITALS: BP 107/51; PULSE 72; RESP 18; TEMP 36.6; O2SAT 95; BMI 24.7
[2023-02-15] MEDS: QUEtiapine 25 MG Tablet PO (21:54)
[2023-02-15] MEDS: Doxazosin 1 MG Tablet PO (21:54)
[2023-02-15] MEDS: Atorvastatin Calcium 20 MG Tablet PO (21:55)
[2023-02-15] MEDS: Fluticasone 0.05% 1 SPRAY NASAL.SRY 2 SPRAY NASAL (21:55)
[2023-02-15 22:20] LABS: Bedside Glucose 133 mg/dL (74-106)
[2023-02-16] MEDS: Enoxaparin 40 MG/0.4 ML Syringe SC (06:00)
[2023-02-16 06:45] LABS: Bedside Glucose 116 mg/dL (74-106)
[2023-02-16 07:14] VITALS: BP 149/59; PULSE 83; RESP 16; TEMP 36.3; O2SAT 94
[2023-02-16] MEDS: Cefadroxil 500 MG CAPSULE 1000 MG PO (07:59)
[2023-02-16] MEDS: Polyethylene Glycol 3350 17 GM PACKET PO (07:59)
[2023-02-16] MEDS: glipiZIDE XL 5 MG Tablet PO (07:59)
[2023-02-16] MEDS: Pantoprazole Sodium 20 MG Tablet PO (08:00)
[2023-02-16] MEDS: Senna/Docusate Sodium 1 Tablet 2 TABLET PO (08:00)
[2023-02-16] MEDS: Lisinopril 5 MG Tablet 15 MG PO (08:01)
[2023-02-16 10:39] VITALS: BMI 24.7
[2023-02-16 17:20] LABS: Bedside Glucose 84 mg/dL (74-106)
[2023-02-16 21:00] VITALS: BP 115/62; PULSE 85; RESP 18; TEMP 36.9; O2SAT 95; BMI 24.7
[2023-02-16] MEDS: Atorvastatin Calcium 20 MG Tablet PO (21:10)
[2023-02-16] MEDS: Fluticasone 0.05% 1 SPRAY NASAL.SRY 2 SPRAY NASAL (21:11)
[2023-02-16] MEDS: QUEtiapine 25 MG Tablet PO (21:11)
[2023-02-16] MEDS: Doxazosin 1 MG Tablet PO (21:11)
--- NOTE | 2023-02-17 03:32 | NURSING ---
Reviewed and agree with Hola DICK, documentation and assessment charting.
[2023-02-17] MEDS: Enoxaparin 40 MG/0.4 ML Syringe SC (05:49)
[2023-02-17 07:27] LABS: Bedside Glucose 109 mg/dL (74-106)
[2023-02-17] MEDS: glipiZIDE XL 5 MG Tablet PO (09:35)
[2023-02-17] MEDS: Pantoprazole Sodium 20 MG Tablet PO (09:35)
[2023-02-17] MEDS: Cefadroxil 500 MG CAPSULE 1000 MG PO (09:35)
[2023-02-17] MEDS: Lisinopril 5 MG Tablet 15 MG PO (09:35)
[2023-02-17 09:40] VITALS: BP 130/53; PULSE 76; RESP 16; TEMP 36.5; O2SAT 96
--- NOTE | 2023-02-17 10:12 | PCM.PROGNOTE ---
Subjective Subjective Day #4 cefadroxil Afebrile VSS-blood pressure is for the most part adequately controlled. Diastolics are always within goal but systolic is often elevated in the AM.....between 130-140. Lam has helped. Orthostatics were negative last . Maintaining appropriate oxygen saturation on RA Oral intake is good. Incontinence has resolved with antibiotics. Blood sugar record was reviewed and the blood sugars are under excellent control with no hypoglycemia. Discussed with nursing - no problems that need addressed Reviewed the PT/OT/ST notes Medication list reviewed. Raymond denies lightheadedness, vertigo, CP, SOB at rest, SOB with exertion, cough, nausea, vomiting, abd pain, diarrhea, constipation, dysuria, calf pain and ankle swelling. Frustrated that he is not able to write......he is right handed and fine motor coordination of the R hand is impaired by the stroke. Tells me that he is no longer taking the Ambien because he feels it was contributing to urinary continence at night. anxious to go home on Friday........will be dependent on whether or not his will be able to adequately assist him......she is coming in for shared care this week and will spend the day with the therapists. Objective Data Objective Data Vital Signs: Vital Signs Temp Pulse Resp BP Pulse Ox O2 Del Method FiO2 97.7 F L 76 16 130/53 H 96 Room Air 97 02/17/23 09:40 02/17/23 09:40 02/17/23 09:40 02/17/23 09:40 02/17/23 09:40 02/17/23 09:40 02/14/23 22:00 Oxygen Delivery Method Room Air Weight: 144 lb 9.972 oz Body Mass Index (BMI) 24.7 Intake & Output: Intake and Output for Last 24 Hours 02/15/23 02/16/23 02/17/23 23:59 23:59 23:59 Intake Total 1300 / 1300 420 / 420 360 / 360 Output Total 1300 / 1300 700 / 700 Balance 0 / 0 -280 / -280 360 / 360 Lab / Micro Data Result Diagrams: 02/09/23 02:45 02/09/23 02:45 Labs: Laboratory Results - last 24 hr 02/16/23 16:51: POC Glucose 84 02/17/23 06:43: POC Glucose 109 H Micro: Microbiology 02/11/23 18:25 Urine, Clean Catch Urine Culture - Final Staphylococcus aureus Physical Exam Const alert and no apparent distress General Appearance: cooperative HEENT moist oral mucous membranes Resp normal respiratory effort, no use of accessory muscles and clear to auscultation bilaterally Effort and Inspection: Negative for tachypneic or labored Cardio regular rate, regular rhythm and no gallops GI normal to inspection, nondistended, normoactive bowel sounds, non-tender and non-distended GI Narrative: no guarding with palpation Extremity Negative for no calf tenderness General Extremity: Negative for edema Skin General Skin Exam: no breakdown Rashes: no rashes Psych affect normal Appearance: appropriate Assessment & Plan Assessment/Plan (1) Debility: (2) Intracranial hemorrhage: (3) Right hemiparesis: (4) Diabetes mellitus: (5) Hypertension: (6) Hyperlipidemia: (7) BPH (benign prostatic hyperplasia): (8) Tubular adenoma of colon: (9) B12 deficiency: (10) Tetrahydrocannabinol (THC) dependence: PLAN: Plan 1. Continue therapy 2. His is coming in this week for family training/shared care and a decision will need to be made if she will be able to assist him at home adequately or if he needs to go to a SNF prior to returning home. 3. Check a BMP and CBC in the a.m. 4. Plan 7 days of cefadroxil for methicillin sensitive Staph aureus cystitis. 5. Discontinue Ambien Charges/Coding Visit Charges Inpatient E&M: 49819 Subs Hosp L2
[2023-02-17 16:32] VITALS: BMI 24.7
[2023-02-17 17:15] LABS: Bedside Glucose 112 mg/dL (74-106)
[2023-02-17 19:27] VITALS: BP 122/65; PULSE 82; RESP 16; TEMP 36.4; O2SAT 94
[2023-02-17 20:10] VITALS: BMI 24.7
[2023-02-17] MEDS: QUEtiapine 25 MG Tablet PO (20:22)
[2023-02-17] MEDS: Fluticasone 0.05% 1 SPRAY NASAL.SRY 2 SPRAY NASAL (20:22)
[2023-02-17] MEDS: Atorvastatin Calcium 20 MG Tablet PO (20:22)
[2023-02-17] MEDS: Doxazosin 1 MG Tablet PO (20:22)
[2023-02-18 05:47] LABS: Hemoglobin 13.5 g/dL (13.0-16.5); Mean Corp Hgb Conc 33.8 g/dL (32-36); Mean Corpuscular Hgb 33.3 pg (27.0-32.0); Mean Corpuscular Volume 98.8 fL (80-94); Mean Platelet Vol. 10.4 fl (6.2-12.0); Platelet Count 230 K/mm3 (150-450); RBC Distribution Width CV 12.4 % (11.6-14.6); RBC Distribution Width SD 45.3 fl (35.1-43.9); Red Blood Count 4.05 M/mm3 (4.6-6.2); White Blood Count 6.7 K/mm3 (4.4-11.0)
[2023-02-18] MEDS: Enoxaparin 40 MG/0.4 ML Syringe SC (06:17)
[2023-02-18 06:34] LABS: Anion Gap 5 (5-15); BUN 34 mg/dL (7-18); BUN/Creat Ratio 31.5 RATIO (10-20); Calcium,Total 9.2 mg/dL (8.5-10.1); Chloride 102 mmol/L (98-107); Creatinine, Serum 1.08 mg/dL (0.70-1.30); EST Glomerular Filtration Rate 70 mL/min (>60); Est Glom Filt Rate - Afr Amer 85 mL/min (>60); Estimated Creatinine Clearance 47.96 ml/min; Glucose 109 mg/dL (74-106); Potassium 4.4 mmol/L (3.5-5.1); Sodium Level 135 mmol/L (136-145)
[2023-02-18 06:55] LABS: Bedside Glucose 119 mg/dL (74-106)
[2023-02-18 07:32] VITALS: BP 115/61; PULSE 69; RESP 15; TEMP 36.4; O2SAT 96
[2023-02-18] MEDS: Lisinopril 5 MG Tablet 15 MG PO (09:48)
[2023-02-18] MEDS: Pantoprazole Sodium 20 MG Tablet PO (09:49)
[2023-02-18] MEDS: glipiZIDE XL 5 MG Tablet PO (09:49)
[2023-02-18] MEDS: Cefadroxil 500 MG CAPSULE 1000 MG PO (09:49)
[2023-02-18 15:54] VITALS: BMI 24.7
[2023-02-18 17:00] LABS: Bedside Glucose 124 mg/dL (74-106)
[2023-02-18 19:49] VITALS: BP 148/64; PULSE 87; RESP 18; TEMP 37; O2SAT 96
[2023-02-18] MEDS: Fluticasone 0.05% 1 SPRAY NASAL.SRY 2 SPRAY NASAL (21:05)
[2023-02-18] MEDS: QUEtiapine 25 MG Tablet PO (21:06)
[2023-02-18] MEDS: Doxazosin 1 MG Tablet PO (21:06)
[2023-02-18] MEDS: Atorvastatin Calcium 20 MG Tablet PO (21:06)
[2023-02-19 00:49] VITALS: BMI 24.7
[2023-02-19] MEDS: Enoxaparin 40 MG/0.4 ML Syringe SC (05:13)
[2023-02-19 06:00] VITALS: BMI 25.0
[2023-02-19 07:28] LABS: Bedside Glucose 124 mg/dL (74-106)
[2023-02-19] MEDS: Cefadroxil 500 MG CAPSULE 1000 MG PO (08:55)
[2023-02-19] MEDS: Lisinopril 5 MG Tablet 15 MG PO (08:56)
[2023-02-19] MEDS: Pantoprazole Sodium 20 MG Tablet PO (08:56)
[2023-02-19] MEDS: glipiZIDE XL 5 MG Tablet PO (08:56)
[2023-02-19 10:00] VITALS: BP 127/45; PULSE 65; RESP 18; TEMP 36.3; O2SAT 97
--- NOTE | 2023-02-19 12:26 | PN_ITS ---
Subjective Subjective Day #5 cefadroxil Afebrile VSS-blood pressure is well controlled and the heart rate is within normal limits. Maintaining appropriate oxygen saturation on RA Oral intake is good The blood sugar record was reviewed and the blood sugars are under excellent control with no hypoglycemia. Discussed with nursing - no problems that need addressed Reviewed the PT/OT/ST notes Medication list reviewed. Denies dysuria and no longer has urinary incontinence. He thinks maybe it was due to trazodone and that he could not get awake enough to use the urinal. Raymond denies chest pain, shortness of breath, palpitations, n ausea/vomiting/abdominal pain, calf tenderness and lightheadedness. He is not c/o insomnia even though he has not been taking the Trazodone. Objective Data Objective Data Vital Signs: Vital Signs Temp Pulse Resp BP Pulse Ox O2 Del Method FiO2 97.4 F L 65 18 127/45 H 97 Room Air 97 02/19/23 10:00 02/19/23 10:00 02/19/23 10:00 02/19/23 10:00 02/19/23 10:00 02/19/23 10:00 02/14/23 22:00 Oxygen Delivery Method Room Air Weight: 144 lb 9.972 oz Body Mass Index (BMI) 24.7 Intake & Output: Intake and Output for Last 24 Hours 02/17/23 02/18/23 02/19/23 23:59 23:59 23:59 Intake Total 1060 / 1060 250 / 250 Output Total 1000 / 1000 550 / 550 Balance 60 / 60 250 / 250 -550 / -550 Lab / Micro Data Result Diagrams: 02/18/23 05:25 02/18/23 05:25 Labs: Laboratory Results - last 24 hr 02/18/23 16:37: POC Glucose 124 H 02/19/23 06:27: POC Glucose 124 H Micro: Microbiology 02/11/23 18:25 Urine, Clean Catch Urine Culture - Final Staphylococcus aureus Physical Exam Const alert, oriented x3 and no apparent distress General Appearance: cooperative HEENT normocephalic and moist oral mucous membranes Resp normal respiratory effort, no use of accessory muscles and clear to auscultation bilaterally Effort and Inspection: Negative for tachypneic or labored Cardio regular rate, regular rhythm, no rub and no gallops GI normal to inspection, nondistended, normoactive bowel sounds, soft to palpation and non-tender GI Narrative: no guarding with palpation Extremity Negative for no calf tenderness General Extremity: Negative for edema Skin General Skin Exam: no breakdown Rashes: no rashes Psych cooperative and affect normal Appearance: appropriate Assessment & Plan Assessment/Plan (1) Debility: (2) Intracranial hemorrhage: (3) Right hemiparesis: (4) Diabetes mellitus: (5) Hypertension: (6) Hyperlipidemia: (7) BPH (benign prostatic hyperplasia): (8) Tubular adenoma of colon: (9) B12 deficiency: (10) Tetrahydrocannabinol (THC) dependence: PLAN: Plan 1. Continue therapy 2. Family training tomorrow with his 3. Discontinue cefadroxil. He has had 5 days of treatment and is completely asymptomatic and afebrile. 4. Discontinue Seroquel at at bedtime 5. Discontinue Accu-Cheks 6. Plan discharge home Friday, 03-14, with outpatient therapy Charges/Coding Visit Charges Inpatient E&M: 62429 Subs Hosp L2
[2023-02-19 15:30] VITALS: BMI 25.0
--- NOTE | 2023-02-19 15:56 | CASEMGMT ---
Social Work SW followed up with therapy after training with DME recommendations. Pt needs a FWW. SW send order to [facility] via [facility]. confirmed pt to DC home with [facility]/OT/ST. SW left voicemail with [facility] to follow up on appts. Plan: DC home with 02/21, [facility]/OT/ST, FWW Johanny Hood, DIRECTOR OF NATIONAL SALES VACCINE SPECIALIST
[2023-02-19 19:47] VITALS: BP 111/51; PULSE 75; RESP 16; TEMP 36.1; O2SAT 94
[2023-02-19 21:43] VITALS: BP 113/86; PULSE 79
[2023-02-19] MEDS: Atorvastatin Calcium 20 MG Tablet PO (21:44)
[2023-02-19] MEDS: Doxazosin 1 MG Tablet PO (21:44)
[2023-02-19] MEDS: Fluticasone 0.05% 1 SPRAY NASAL.SRY 2 SPRAY NASAL (21:44)
[2023-02-19 22:03] VITALS: BMI 25.0
[2023-02-20] MEDS: Enoxaparin 40 MG/0.4 ML Syringe SC (06:12)
--- NOTE | 2023-02-20 06:13 | NURSING ---
pt washed up face this morning. At this time, patient stated he did not want to change his shirt and did not want his alisa hose on at this time. Pt states he will ring call mckenzie when he is ready.
[2023-02-20 06:50] LABS: Anion Gap 5 (5-15); BUN 32 mg/dL (7-18); BUN/Creat Ratio 29.4 RATIO (10-20); Calcium,Total 9.2 mg/dL (8.5-10.1); Chloride 104 mmol/L (98-107); Creatinine, Serum 1.09 mg/dL (0.70-1.30); EST Glomerular Filtration Rate 70 mL/min (>60); Est Glom Filt Rate - Afr Amer 84 mL/min (>60); Estimated Creatinine Clearance 47.52 ml/min; Glucose 117 mg/dL (74-106); Potassium 4.7 mmol/L (3.5-5.1); Sodium Level 136 mmol/L (136-145)
[2023-02-20 07:39] VITALS: BP 102/57; PULSE 62; RESP 16; TEMP 36.2; O2SAT 95
[2023-02-20] MEDS: glipiZIDE XL 5 MG Tablet PO (07:56)
[2023-02-20] MEDS: Lisinopril 5 MG Tablet 15 MG PO (07:56)
[2023-02-20] MEDS: Pantoprazole Sodium 20 MG Tablet PO (07:56)
--- NOTE | 2023-02-20 09:46 | PCM.PROGNOTE ---
Subjective Subjective Raymond was seen on team rounds today. His was present in the room for rounds. Afebrile VSS Maintaining appropriate oxygen saturation on RA Oral intake is good No urinary incontinence. Discussed with nursing - no problems that need addressed Reviewed the PT/OT/ST notes Medication list reviewed. All lab drawn this morning was personally reviewed. Sodium is normal at 136 and the potassium is 4.7. BUN is 32 with a creatinine of 1.09 and a BUN/creatinine ratio of 29.4. Denies lightheadedness. Continues to not drink enough fluid despite much encouragement. Check orthostatics today. Alessia came in for family training yesterday and it went very well. She feels much better about him coming home tomorrow. Objective Data Objective Data Vital Signs: Vital Signs Temp Pulse Resp BP Pulse Ox O2 Del Method FiO2 97.2 F L 62 16 102/57 L 95 Room Air 97 02/20/23 07:39 02/20/23 07:39 02/20/23 07:39 02/20/23 07:39 02/20/23 07:39 02/20/23 07:39 02/14/23 22:00 Oxygen Delivery Method Room Air Weight: 144 lb 9.972 oz Body Mass Index (BMI) 25.0 Intake & Output: Intake and Output for Last 24 Hours 02/18/23 02/19/23 02/20/23 23:59 23:59 23:59 Intake Total 250 / 250 Output Total 550 / 550 Balance 250 / 250 -550 / -550 Lab / Micro Data 02/18/23 05:25 02/20/23 05:56 Labs: Laboratory Results - last 24 hr 02/20/23 05:56: Sodium 136, Potassium 4.7, Chloride 104, Carbon Dioxide 27.0, Anion Gap 5, BUN 32 H, Creatinine 1.09, Estim Creat Clear Calc 47.52, Est GFR (MDRD) Af Amer 84, Est GFR (MDRD) Non-Af 70, BUN/Creatinine Ratio 29.4 H, Glucose 117 H, Calcium 9.2 Micro: Microbiology 02/11/23 18:25 Urine, Clean Catch Urine Culture - Final Staphylococcus aureus Physical Exam Const alert, oriented x3 and no apparent distress General Appearance: cooperative HEENT normocephalic and moist oral mucous membranes Resp normal respiratory effort, no use of accessory muscles and clear to auscultation bilaterally Effort and Inspection: Negative for tachypneic or labored Cardio regular rate, regular rhythm, no rub and no gallops GI normal to inspection, nondistended, normoactive bowel sounds, soft to palpation and non-tender GI Narrative: no guarding with palpation Extremity Negative for no calf tenderness General Extremity: Negative for edema Skin General Skin Exam: no breakdown Rashes: no rashes Psych cooperative and affect normal Appearance: appropriate Assessment & Plan Assessment/Plan (1) Debility: (2) Intracranial hemorrhage: (3) Right hemiparesis: (4) Diabetes mellitus: (5) Hypertension: (6) Hyperlipidemia: (7) BPH (benign prostatic hyperplasia): (8) Tubular adenoma of colon: (9) B12 deficiency: (10) Tetrahydrocannabinol (THC) dependence: PLAN: Plan 1. Continue therapy today and DC home tomorrow 2. Will have OP therapy at [facility] 3. Follow up with PCP in 7-10 days. Charges/Coding Visit Charges Inpatient E&M: 27994 Subs Hosp L2
[2023-02-20 10:42] VITALS: BP 137/64; BP 144/66; BP 154/76; PULSE 86; PULSE 88; PULSE 95
--- NOTE | 2023-02-20 12:52 | CASEMGMT ---
Social Work IDT met with patient and for Team meeting. Discussed patient's progress in PT/OT/ST/SN. Confirmed DC home 02/21, per Medicare. SW coordinated FWW and outpatient PT/OT/ST at [facility]. No other needs noted. Johanny Hood, HEEL SPRAYER [employer] COLLECTION SYSTEM OPERATOR
[2023-02-20 13:19] VITALS: BMI 25.0
[2023-02-20 20:00] VITALS: BP 118/62; PULSE 77; RESP 16; TEMP 36.9; O2SAT 97; BMI 25.0
[2023-02-20] MEDS: Atorvastatin Calcium 20 MG Tablet PO (20:24)
[2023-02-20] MEDS: Doxazosin 1 MG Tablet PO (20:24)
[2023-02-20] MEDS: Fluticasone 0.05% 1 SPRAY NASAL.SRY 2 SPRAY NASAL (20:24)
[2023-02-21] MEDS: Enoxaparin 40 MG/0.4 ML Syringe SC (06:16)
[2023-02-21 08:08] VITALS: BP 133/52; PULSE 71; RESP 18; TEMP 36.3; O2SAT 94
[2023-02-21] MEDS: Pantoprazole Sodium 20 MG Tablet PO (08:45)
[2023-02-21] MEDS: Lisinopril 5 MG Tablet 15 MG PO (08:45)
[2023-02-21] MEDS: glipiZIDE XL 5 MG Tablet PO (08:45)
--- NOTE | 2023-02-21 09:37 | DCINST_ITS ---
Discharge Instructions Diet Discharge Diet: - (Low-fat, low-salt, carbohydrate consistent) Activity Discharge Activity: May Not Drive, May Shower and Use Walker May resume sexual activity in: No Restrictions Weight Bearing Status: Full weight bearing Lifting Restrictions: No more than 5-10 lbs Dressing / Incision Call your doctor if you observe: Fever of 101 or Higher, Inability to urinate, Shortness of breath, Dizziness, Fainting spells, Swelling in the ankles, Chest pain, Increased palpitations (irregular heartbeat), Calf discomfort and Uncontrolled pain Follow Up Care Please Follow Up With: Phill Delgado MD Test Results: Test results from this visit will be discussed in further detail at your follow- up appointment, if applicable. Pending Tests Upon Discharge: none Discharge Plan Admission Admit Date/Time: 02/08/23 15:04 Primary Reason for Your Visit: Post stroke debility Attending Provider: Rachel Zelaya Consulting Providers: Erik Nicholson Chi Instructions Patient Instructions: Lipid Panel, Intimacy After Stroke, Hypertension Stroke Link, Discharge Instructions for Stroke, What Is Hemorrhagic Stroke, Risk Factors for Stroke Additional Instructions / Restrictions: 1. 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 The imaging you had of the brain and the blood vessels supplying the brain showed no aneurysms, no arteriovenous malformations and no masses. Your stroke is presumed to be due to uncontrolled high blood pressure but, we can not say this for sure. It is very important to keep your BP controlled and this means it should be less than 130/80. I suggest you get a BP cuff to keep at home and take your BP a few times a week at different times to make sure it is staying < 130/80. If it is consistently > 130/[address] Delgado for advice on adjusting medications. 2. You need to drink more non-caffeinated liquids to stay hydrated. The symptoms of dehydration are lightheadedness with standing, racing heart, weakness and fatigue. 3. One of the medications that helps control your blood pressure is called doxazosin, also known as Cardura. You take this medication at bedtime. Not only does it control blood pressure but it helps with the prostate. This drug will make you lightheaded if you get dehydrated. 4. Caffeine can elevate the BP and so can decongestants like Sudafed. If you take an over the counter medication for nasal congestion always ask the pharmacist if the medication could elevate your BP. 5. Your Blood sugars are under excellent control and the goal should be to keep the HGBA1C under 7. Your HGBA1C while in rehab was 6.5 and that is excellent. 6. You are on a medication to control your cholesterol and it is called Atorvastatin, also called Lipitor. Take this medication at bedtime. Your LDL (bad cholesterol) should be less than or equal to 70 since you are diabetic and you have had a stroke. I would like to see your HDL (good cholesterol) > 40. Exercise helps to increase your HDL and this helps to prevent strokes. Daily exercise helps to prevent strokes and to preserve brain/cognitive function. 7. It has been a pleasure getting to know you Raymond. Take care of yourself and be well. If you have any questions after you leave rehab please do not hesitate to call me. OFFICE: [phone] CELL: [phone] Discharge Orders/Prescriptions Prescriptions: New acetaminophen 500 mg Tablet 1,000 mg PO Q6H PRN PRN (Reason: Pain Score 1-10) Qty: 1 0RF glipizide 5 mg tablet extended release 24hr 5 mg PO DAILY Qty: 30 0RF doxazosin 1 mg tablet 1 mg PO QHS Qty: 30 0RF Continued atorvastatin 20 mg Tablet 20 mg PO QHS Qty: 30 0RF omeprazole 20 mg Capsule,Delayed Release(Dr/Ec) 20 mg PO DAILY Qty: 30 0RF lisinopril 5 mg Tablet 15 mg PO DAILY Qty: 90 0RF Rx Instructions: 2 tabs in the AM and 1 tab at bedtime Discontinued quetiapine [Seroquel] 25 mg Tablet 25 mg PO BID ipratropium-albuterol [DuoNeb] 0.5 mg-3 mg(2.5 mg base)/3 mL Solution For Nebulization 3 ml INHALATION Q4H PRN (Reason: Shortness Of Breath Or Wheezing) polyethylene glycol 3350 [Miralax] 17 gram Powder In Packet 17 g PO DAILY thiamine HCl (vitamin B1) 100 mg Tablet 100 mg PO DAILY folic acid 1 mg Tablet 1 mg PO DAILY fluticasone propionate [Flonase] 50 mcg/actuation [place],Suspension 2 spray INTRANASAL DAILY Rx Instructions: administer into each nostril senna-docusate sodium Tablet 2 tab PO BID mometasone 220 mcg/ actuation (14) Aerosol Powdr Breath Activated 1 inh INHALATION DAILY glipizide [Glucotrol XL] 5 mg Tablet Extended Release 24hr 5 mg PO BID Referrals / Follow Up: Dahlia Villalba MD [Other] - 03/18/23 10:00 am (Neuro ) Phill Delgado MD [Non-Staff] - 02/28/23 1:00 pm Disposition Disposition (needs filled in before D/C Order can be placed): Home, Self Care
[2023-02-21 10:24] VITALS: BP 137/64; PULSE 91; RESP 18; TEMP 36.6; O2SAT 96
--- NOTE | 2023-02-21 10:26 | DS.PCM_ITS ---
Providers Date of Admission: 02/08/23 Date of Discharge: 02/21/23 none Reason For Visit: CVA Diagnosis Discharge Diagnosis (1) Debility: Status: Acute Code(s): R53.81 - Other malaise (2) Intracranial hemorrhage: Status: Acute Code(s): I62.9 - Nontraumatic intracranial hemorrhage, unspecified (3) Right hemiparesis: Status: Acute Code(s): G81.91 - Hemiplegia, unspecified affecting right dominant side (4) Diabetes mellitus: Status: Acute Code(s): E11.9 - Type 2 diabetes mellitus without complications Plan: Well controlled as an OP. (5) Hypertension: Status: Chronic Code(s): I10 - Essential (primary) hypertension Plan: Goal is consistently less than 130/80 given the hemorrhagic stroke. I believe he was compliant with his medications at home....the markedly elevate BP in the ED could be due to cerebral autoregulation to increase blood blood flow to an ischemic area. (6) Hyperlipidemia: Status: Acute Code(s): E78.5 - Hyperlipidemia, unspecified (7) BPH (benign prostatic hyperplasia): Status: Acute Code(s): N40.0 - Benign prostatic hyperplasia without lower urinary tract symptoms Plan: Has sx of BPH........On Flomax in the past but, it did not seem to help with nocturia and urgency. He is doing well at NH on Cardura at [facility] from rehab. (8) Tubular adenoma of colon: Status: Acute Code(s): D12.6 - Benign neoplasm of colon, unspecified (9) B12 deficiency: Status: Acute Code(s): E53.8 - Deficiency of other specified B group vitamins (10) Tetrahydrocannabinol (THC) dependence: Status: Acute Code(s): F12.20 - Cannabis dependence, uncomplicated Plan: 2 joints a day. Plan 1. DC home with his . She had family training this week and feels that they will be able to manage at home. 2. OP therapy in [place]. Medications at Discharge Home Medications acetaminophen 500 mg tablet 1,000 mg PO Q6H PRN PRN Pain Score 1-10 #1 TAB 02/21/23 atorvastatin 20 mg tablet 20 mg PO QHS cholesterol #30 tabs 02/21/23 doxazosin 1 mg tablet 1 mg PO QHS #30 tabs 02/21/23 glipizide 5 mg tablet, extended release 24 hr 5 mg PO DAILY #30 tabs 02/21/23 lisinopril 5 mg tablet 15 mg PO DAILY bp #90 tabs 02/21/23 omeprazole 20 mg capsule,delayed release 20 mg PO DAILY gerd #30 caps 02/21/23 Hospital Course Operations None Procedures None Summary of Care Provided Minutes Spent on Discharge: 40 Hospital Course: Dileep Cr is a 77-year-old male with a past medical history of BPH, B12 deficiency, diabetes mellitus type 2, tobacco dependence in remission, alcohol dependence in remission, hyperlipidemia, hypertension, regular THC use, COPD and colon polyps. He presented to the emergency department at [facility] on 02/03/2023 with right hemiparesis. A stat noncontrast CT brain showed a left thalamic intracerebral hemorrhage thought to be secondary to uncontrolled hypertension however the patient and his told me that he takes his med ications religiously. I suspect the blood pressure was elevated in the emergency department secondary to the stroke. He was started on a Cardene drip at the emergency room in [place] and then transferred to [facility] to be evaluated by neurosurgery. Neurosurgery recommended no judith rosurgical intervention. CTA of the head and neck was done and showed no AVM's, hemorrhagic masses and no aneurysms. He was admitted to the ICU and had delirium in the ICU. He was on Precedex at the time the delirium developed. He was started on Seroquel and also started on folic acid and thiamine. Raymond assures me that he stopped drinking except for special occasions many years ago. EEG was ne gative for seizures. While at [facility] he was seen by PT/OT/ST and a recommendation for acute inpt rehab was made. He was transferred to the acute inpt rehab unit at [facility] on 02/08/23 for 3 hours of therapy daily to restore function/independence at or near his level prior to the stroke. HGBA1C at admission to [facility] was 6.5. B12 was normal. Raymond c/o nocturia, urgency, dribbling and a UZ was done that showed 50-100 WBCs per high-power field with rare bacteria. It was nitrite negative. He was afebrile. White blood cell count was normal. Urine culture was done and grew less than 1000 colonies of a methicillin sensitive Staph aureus. He received a 5 days course of appropriate antibiotics. PVR's were all less than 200. He was started on Cardura for BPH and also for its effective on lowering BP. Prior to DC he had no urgency and dribbling and denied dysuria. Raymond did quite well in therapy. To discharge he was independent with eating and supervision/set up for grooming. He was also supervision/set up for bathing, upper body dressing, lower body dressing and toileting. He was standby assist with toilet transfer and tub/shower transfer. He could complete 12 steps with 2 handrails at contact-guard assist but he was hitting the right foot on the step consistently. He will not be going up and down stairs to the basement when he initially goes home and only has to go up 2 steps with 1 handrail which he was able to do with a wheeled walker and then a platform with a wheeled walker at contact-guard assist. This will allow him entry into his home. He had ambulated up to 660 feet with a wheeled walker at standby assist/contact- guard assist on various surfaces. He was tried with a straight cane but did better with a wheeled walker so he went home with a wheeled walker. His came in a few days from [place] for family/shared training and she felt competent she would be able to provide the assistance Ryamond needs at home. Raymond was discharged on 02/21/23. He will have outpatient therapy at [facility]. He has appointments to follow-up with Dr. Nadege Villalba from neurosurgery and Dr. Phill Delgado, his PCP. Physical Exam Const alert, oriented x3, no apparent distress and well nourished Constitutional Narrative: Looks younger than his stated age. General Appearance: cooperative and comfortable HEENT head/scalp atraumatic HEENT Narrative: Mucous membranes are dry. I once again told him to drink enough water daily to keep his urine a pale yellow. Eyes PERRL, EOMs intact bilaterally, conjunctivae normal and no scleral icterus Eyes Narrative: Normal visual wills Neck no lymphadenopathy, supple, nodes and no carotid bruits General: trachea midline Chest Chest: symmetrical chest wall rise Resp normal respiratory effort, normal air movement, no use of accessory muscles and clear to auscultation bilaterally Resp Narrative: Take neck and breathing is not labored. Effort and Inspection: able to speak in complete sentences Cardio regular rate, regular rhythm, S1 normal heart sound, S2 normal heart sound, no murmurs, no rub and no gallops GI normal to inspection, nondistended, normoactive bowel sounds, soft to palpation, non-tender, no masses and no bruits GI Narrative: No guarding with palpation Extremity normal capillary refill, no calf tenderness and no pedal edema Skin General Skin Exam: no breakdown Rashes: no rashes Neuro oriented x3, CN's II-XII intact bilaterally and moves all extremities Neuro Narrative: Continues to have some weakness of the right lower extremity but can hold it up for 5 seconds with no drift. Primarily he is still catching it on the step when he climbs steps. Also still with decreased sensation on the right side. No dysarthria. No ataxia, no aphasia, no visual loss. Psych mental status grossly normal, cooperative, affect normal and speech normal Appearance: appropriate and well kempt Attitude: calm Activity / Motor Behavior: appropriate eye contact Weight / BMI Weight Weight: 144 lb 9.972 oz Body Mass Index (BMI) 25.0 ABG / Lab / Microbiology Data Result Diagrams: 02/18/23 05:25 02/20/23 05:56 Microbiology: Microbiology 02/11/23 18:25 Urine, Clean Catch Urine Culture - Final Staphylococcus aureus Indicators for Scoring Admitted with or Primary Diagnosis of CVA/Stroke: Yes Hx of CVA/Stroke: Yes Modified Mena Score MRS Score at time of Evaluation: 3-Moderate disability D/C Instructions Discharge Diet: - (Low-fat, low-salt, carbohydrate consistent) May resume sexual activity in: No Restrictions Weight Bearing Status: Full weight bearing Call your doctor if you observe: Fever of 101 or Higher, Inability to urinate, Shortness of breath, Dizziness, Fainting spells, Swelling in the ankles, Chest pain, Increased palpitations (irregular heartbeat), Calf discomfort and Uncontrolled pain Pending Tests Upon Discharge: none Please Follow Up With: Phill Delgado MD Meaningful Use Info Meaningful Use Diagnoses (Choose all that apply): Hemorrhagic CVA CVA Therapy Assessed for PT,OT and/or ST?: Yes Discharge Plan Admission Admit Date/Time: 02/08/23 15:04 Primary Reason for Your Visit: Post stroke debility Attending Provider: Rachel Zelaya Consulting Providers: Erik Nicholson Chi Instructions Patient Instructions: Lipid Panel, Intimacy After Stroke, Hypertension Stroke Link, Discharge Instructions for Stroke, What Is Hemorrhagic Stroke, Risk Factors for Stroke Additional Instructions / Restrictions: 1. 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 The imaging you had of the brain and the blood vessels supplying the brain showed no aneurysms, no arteriovenous malformations and no masses. Your stroke is presumed to be due to uncontrolled high blood pressure but, we can not say this for sure. It is very important to keep your BP controlled and this means it should be less than 130/80. I suggest you get a BP cuff to keep at home and take your BP a few times a week at different times to make sure it is staying < 130/80. If it is consistently > 130/[address] Delgado for advice on adjusting medications. 2. You need to drink more non-caffeinated liquids to stay hydrated. The symptoms of dehydration are lightheadedness with standing, racing heart, weakness and fatigue. 3. One of the medications that helps control your blood pressure is called doxazosin, also known as Cardura. You take this medication at bedtime. Not only does it control blood pressure but it helps with the prostate. This drug will make you lightheaded if you get dehydrated. 4. Caffeine can elevate the BP and so can decongestants like Sudafed. If you take an over the counter medication for nasal congestion always ask the pharmacist if the medication could elevate your BP. 5. Your Blood sugars are under excellent control and the goal should be to keep the HGBA1C under 7. Your HGBA1C while in rehab was 6.5 and that is excellent. 6. You are on a medication to control your cholesterol and it is called Atorvastatin, also called Lipitor. Take this medication at bedtime. Your LDL (bad cholesterol) should be less than or equal to 70 since you are diabetic and you have had a stroke. I would like to see your HDL (good cholesterol) > 40. Exercise helps to increase your HDL and this helps to prevent strokes. Daily exercise helps to prevent strokes and to preserve brain/cognitive function. 7. It has been a pleasure getting to know you Raymond. Take care of yourself and be well. If you have any questions after you leave rehab please do not hesitate to call me. OFFICE: [phone] CELL: [phone] Discharge Orders/Prescriptions Prescriptions: New acetaminophen 500 mg Tablet 1,000 mg PO Q6H PRN PRN (Reason: Pain Score 1-10) Qty: 1 0RF glipizide 5 mg tablet extended release 24hr 5 mg PO DAILY Qty: 30 0RF doxazosin 1 mg tablet 1 mg PO QHS Qty: 30 0RF Continued atorvastatin 20 mg Tablet 20 mg PO QHS Qty: 30 0RF omeprazole 20 mg Capsule,Delayed Release(Dr/Ec) 20 mg PO DAILY Qty: 30 0RF lisinopril 5 mg Tablet 15 mg PO DAILY Qty: 90 0RF Rx Instructions: 2 tabs in the AM and 1 tab at bedtime Discontinued quetiapine [Seroquel] 25 mg Tablet 25 mg PO BID ipratropium-albuterol [DuoNeb] 0.5 mg-3 mg(2.5 mg base)/3 mL Solution For N ebulization 3 ml INHALATION Q4H PRN (Reason: Shortness Of Breath Or Wheezing) polyethylene glycol 3350 [Miralax] 17 gram Powder In Packet 17 g PO DAILY thiamine HCl (vitamin B1) 100 mg Tablet 100 mg PO DAILY folic acid 1 mg Tablet 1 mg PO DAILY fluticasone propionate [Flonase] 50 mcg/actuation Wiley,Suspension 2 spray INTRANASAL DAILY Rx Instructions: administer into each nostril senna-docusate sodium Tablet 2 tab PO BID mometasone 220 mcg/ actuation (14) Aerosol Powdr Breath Activated 1 inh INHALATION DAILY glipizide [Glucotrol XL] 5 mg Tablet Extended Release 24hr 5 mg PO BID Referrals / Follow Up: Dahlia Villalba MD [Other] - 03/18/23 10:00 am (Neuro ) Phill Delgado MD [Non-Staff] - 02/28/23 1:00 pm Disposition Disposition (needs filled in before D/C Order can be placed): Home, Self Care Charges/Coding Visit Charges Inpatient E&M: 32481 Disch Hosp >30min
== END 2023-02-21 14:20 | disposition home or self-care (01) | DRG 57 ==
PROVIDERS: Admitting Provider Family Medicine Geriatric Medicine; Visit Provider Internal Medicine
DX: I69.351 Hemiplegia and hemiparesis following cerebral infarction affecting right dominant side (principal); N30.90 Cystitis, unspecified without hematuria; E11.65 Type 2 diabetes mellitus with hyperglycemia; E53.8 Deficiency of other specified B group vitamins; E78.5 Hyperlipidemia, unspecified; B95.61 Methicillin susceptible Staphylococcus aureus infection as the cause of diseases classified elsewhere; J44.9 Chronic obstructive pulmonary disease, unspecified; F12.20 Cannabis dependence, uncomplicated; I10 Essential (primary) hypertension; Z79.84 Long term (current) use of oral hypoglycemic drugs; N40.0 Benign prostatic hyperplasia without lower urinary tract symptoms; Z87.891 Personal history of nicotine dependence; Z79.899 Other long term (current) drug therapy; Z79.51 Long term (current) use of inhaled steroids
CPT/HCPCS: 36415; 80048; 80053; 81001; 82607; 82962; 83036; 83735; 84100; 85027; 87077; 87086; 87088; 87186; 92507; 92523; 97110; 97112; 97116; 97129; 97130; 97162; 97166; 97530; 97535; 97802; 97803; A4216